=== PATIENT | male | born 1975 | race Caucasian/White ===

== ENCOUNTER 2017-12-05 19:24 | Emergency (ER) | payer SELFPAY ==
[2017-12-05 19:32] VITALS: BP 128/91
[2017-12-05] MEDS ORDERED: Tetan/Diph/Pertus SYR(Tdap)* 0.5 ML SYR(BOOSTRIX) use SYR IM ONE (22:14)
--- NOTE | 2017-12-05 22:15 | ED ---
Laceration/Wound HPI - HPI Summary HPI Summary: 42 male presents ED with complaints of a lip laceration that he sustained around 4:30 today. States laceration is inside his lip and is from hitting a tree branch. Denies any head trauma or loss of consciousness. Denies any broken teeth or biting tongue. Laceration is well approximated and bleeding is controlled. No other current complaints or injuries. Unknown last tetanus. No past medical history. No medications. - History of Current Complaint Stated Complaint: LIP LAC Time Seen by Provider: 12/05/17 21:36 Hx Obtained From: Patient Onset/Duration: Sudden Onset Aggravating: Movement Alleviating: Compression Timing: Constant Onset Severity: Mild Current Severity: None Pain Intensity: 0 Pain Scale Used: 0-10 Numeric Associated Signs & Symptoms: Negative - Allergy/Home Medications Allergies/Adverse Reactions: Allergies Allergy/AdvReac Type Severity Reaction Status Date / Time No Known Allergies Allergy Verified 12/05/17 19:28 PMH/Surg Hx/FS Hx/Imm Hx Endocrine/Hematology History: Denies: Hx Diabetes Cardiovascular History: Denies: Hx Hypertension Respiratory History: Denies: Hx Asthma - Surgical History Surgery Procedure, Year, and Place: None - Immunization History Immunizations Up to Date: Yes Infectious Disease History: No Infectious Disease History: Denies: Traveled Outside the [place] in Last 30 Days - Family History Known Family History: Positive: None - Social History Alcohol Use: None Substance Use Type: Reports: None Smoking Status (MU): Unknown if Ever Smoked Review of Systems Constitutional: Negative ENT: Negative Cardiovascular: Negative Respiratory: Negative Gastrointestinal: Negative Musculoskeletal: Negative Positive: Other - lower lip laceration All Other Systems Reviewed And Are Negative: Yes Physical Exam Triage Information Reviewed: Yes Vital Signs On Initial Exam: Initial Vitals Temp Pulse Resp BP Pulse Ox 98.8 F 84 20 128/91 98 12/05/17 19:25 12/05/17 19:25 12/05/17 19:25 12/05/17 19:25 12/05/17 19:25 Vital Signs Reviewed: Yes Appearance: Positive: Well-Appearing, No Pain Distress, Well-Nourished Skin: Positive: Warm, Skin Color Reflects Adequate Perfusion, Dry, Other - Small superficial abrasion noted on skin just below lower lip. Negative: Cold, Numb, Cyanosis @, Pale, Erythema @ Head/Face: Positive: Normal Head/Face Inspection. Negative: Scalp Eyes: Positive: Normal, EOMI, Conjunctiva Clear ENT: Positive: Hearing grossly normal, Pharynx normal, TMs normal, Uvula midline , Other - Inside Lower lip 1 cm laceration. Does not puncture all the way through. Bleeding controlled well approximated unless manipulated. Rest of exam normal. Neck: Positive: Supple, Nontender Respiratory/Lung Sounds: Positive: Clear to Auscultation, Breath Sounds Present. Negative: Rales, Rhonchi, Wheezes Cardiovascular: Positive: Normal, RRR, Pulses are Symmetrical in both Upper and Lower Extremities. Negative: Murmur, Rub Musculoskeletal: Positive: Normal, Strength/ROM Intact Neurological: Positive: Normal, Sensory/Motor Intact, Alert, Oriented to Person Place, Time Procedures - Laceration/Wound Repair 1 Location: mouth - lower lip inside Description: Linear Anesthesia: Local, 1.0%, Lido Length, Depth and Shape: 1 cm linear Irrigated w/ Saline (ccs): 50 Laceration/Wound Explored: clean Closure: Single Layer Suture Type: Other - Polysorb absorbable Number of Sutures: 1 Layer Closure?: No Sterile Dressing Applied?: No Diagnostics - Vital Signs Vital Signs Temp Pulse Resp BP Pulse Ox 12/05/17 19:25 98.8 F 84 20 128/91 98 - Laboratory Lab Statement: Any lab studies that have been ordered have been reviewed, and results considered in the medical decision making process. Laceration Repair Course/Dx - Course Course Of Treatment: 1 suture placed in lower lip without complication. Sterile procedure was used. Patient tolerated procedure well. Salt water swishes and good oral hygiene. Ice. States will absorb on its own. No other concerns or complaints. Rest of physical exam normal. Vital signs normal. Follow-up with PCP. - Differential Dx Differental Diagnoses: Abrasion, Avulsion, Laceration - Clinical Impression Provider Diagnoses: Laceration of lip Discharge - Sign-Out/Discharge Documenting (check all that apply): Discharge - Discharge Plan Condition: Good Disposition: HOME Patient Education Materials: Laceration (ED), Care For Your Absorbable Stitches (ED) Referrals: No Primary Care Phys,NOPCP [Primary Care Provider] - Additional Instructions: Keep laceration clean and dry. Recommend salt water swishes. Do not scrub brush at area. Any new or worsening symptoms please seek medical attention. - Billing Disposition and Condition Condition: GOOD Disposition: HOME
== END 2017-12-05 22:30 | disposition home or self-care (01) ==
LOC: ED 19:24
DX: S01.511A Laceration without foreign body of lip, initial encounter (principal); W22.8XXA Striking against or struck by other objects, initial encounter; Y92.9 Unspecified place or not applicable
CPT/HCPCS: 12011; 90471; 90715; 99281